=== PATIENT | female | born 1950 | race Caucasian/White ===

== ENCOUNTER 2018-02-22 11:55 | Outpatient (CLI) | payer MEDICARE | END 2018-02-22 11:56 | disposition home or self-care (01) | LOC: BICRAD 11:55 | PROVIDERS: ATTEND Physical Medicine & Rehabilitation | DX: S19.9XXA Unspecified injury of neck, initial encounter (principal); M47.892 Other spondylosis, cervical region | CPT/HCPCS: 72050 ==